=== PATIENT | female | born 2000 | race Caucasian/White ===

== ENCOUNTER 2024-04-07 17:02 | Emergency (ER) | payer OTHER ==
[2024-04-07 17:15] VITALS: BP 116/74; O2SAT 100
--- NOTE | 2024-04-07 17:40 | ED Physician Documentation ---
History of Present Illness - Stated complaint Stated Complaint: BILAT ARM PX - Chief complaint Chief Complaint: Ext Problem - History obtained from History obtained from: Patient - History of Present Illness Timing: How many days ago (3) Pain level max: 0 Pain level now: 0 - Additonal information Additional information: Patient is a 24-year-old female that states that she has had 3 days of bilateral arm pain. She states that it is worse with lifting heavy objects. Better with rest. She states that it started after lifting heavy boxes of frozen chicken. She states that she took a dose of Motrin 2 days ago and that did seem to help. She states that she was talking to a friend who told her that she may have blood clots in her arms and should come to the emergency department. Patient does not have any history of blood clots. No family history of blood clots. No swelling to the arms. No skin changes. Review of Systems Constitutional: denies: Fever, Chills Respiratory: denies: Cough GI: denies: Vomiting, Diarrhea Skin: denies: Rash Musculoskeletal: denies: Neck pain, Back pain Neurologic: denies: Headache PD PAST MEDICAL HISTORY - Past Medical History Past Medical History: No Cardiovascular: None Respiratory: None Neuro: None Endocrine/Autoimmune: None GI: None BUSINESS DEVELOPMENT COORDINATOR: None : None HEENT: None Psych: None Musculoskeletal: None Derm: None - Past Surgical History Past Surgical History: No - Present Medications Home Medications: Ambulatory Orders Medication Instructions Recorded Confirmed No Known Home Medications 04/07/24 04/07/24 - Allergies Allergies/Adverse Reactions: Allergies Allergy/AdvReac Type Severity Reaction Status Date / Time No Known Drug Allergies Allergy Verified 04/07/24 17:06 - Social History Does the pt smoke?: No Smoking Status: Never smoker Does the pt drink ETOH?: No Does the pt have substance abuse?: No - Immunizations Immunizations are current?: Yes - POLST Patient has POLST: No PD ED PE NORMAL - Vitals Vital signs reviewed: Yes - General General: Alert and oriented X 3, No acute distress - HEENT HEENT: Moist mucous membranes - Neck Neck: Supple, no meningeal sign - Cardiac Cardiac: RRR - Respiratory Respiratory: No respiratory distress, Clear bilaterally - Extremities Extremities: Other (Normal inspection of the bilateral arms. No skin changes. No swelling. Neurovascular intact. There is pain with flexion and extension at the elbow against resistance. She feels this pain in her forearm muscles and in her bicep bilaterally. Reproduces her pain..) - Neuro Neuro: Alert and oriented X 3 Results - Vitals Vitals: Vital Signs - 24 hr 04/07/24 17:06 Temperature 36.5 C Heart Rate 72 Respiratory 16 Rate Blood Pressure 116/74 O2 Saturation 100 Oxygen O2 Source Room air PD Medical Decision Making - ED course Complexity details: considered differential, d/w patient ED course: 24-year-old female with muscle strain of the bilateral arms. No evidence of blood clots. No indication for ultrasound. Neurovascular intact. No swelling. Brisk cap refill. No focal neurological deficits. We will treat as muscle strain and have her follow-up with her doctor. Given a dose of IM Toradol here. Patient counseled regarding signs and symptoms for which I believe and urgent re-evaluation would be necessary. Patient with good understanding of and agreement to plan and is comfortable going home at this time This document was made in part using voice recognition software. While efforts are made to proofread this document, sound alike and grammatical errors may occur. Departure - Departure Disposition: 01 Home, Self Care Clinical Impression: Muscle strain Condition: Good Instructions: ED Strain Muscle Ext Follow-Up: your, doctor within 1 week [Other] Comments: There is no evidence of blood clots in your arms today. You appears to have muscle strains in your forearms. Would recommend Motrin and Tylenol as needed for pain. Please follow-up with your doctor for further care. Forms: PCP List Discharge Date/Time: 04/07/24 18:15
[2024-04-07] MEDS: KETOROLAC 60 MG/2 ML VIAL IM STA (18:03)
== END 2024-04-07 18:15 | disposition home or self-care (01) ==
LOC: ED 17:02
DX: S56.911A Strain of unspecified muscles, fascia and tendons at forearm level, right arm, initial encounter (principal); S56.912A Strain of unspecified muscles, fascia and tendons at forearm level, left arm, initial encounter; X50.0XXA Overexertion from strenuous movement or load, initial encounter
CPT/HCPCS: 96372; 99283